=== PATIENT | female | born 1960 | race Caucasian/White ===

== ENCOUNTER 2023-02-03 06:45 | Day surgery (SDC) | payer BC ==
[2023-02-02 12:06] LABS: Absolute Lymphocytes (CBC) 3.3 K/uL (0.7-4.9); Hematocrit 44.4 % (36.0-45.0); Lymphocytes % 36.5 % (15.3-44.8); MCV 88.7 fL (80-100); MPV 7.4 fL (7.6-11.3); Platelets 256 thou/uL (152-406); RBC Red Blood Cell Count 5.01 M/uL (3.86-4.86)
[2023-02-02 12:10] LABS: Protime INR 0.97
--- NOTE | 2023-02-02 12:50 | RAD REPORT ---
EXAM DESCRIPTION: RAD - Chest Pa And Lat (2 Views) - 02/02/2023 11:10 am CLINICAL HISTORY: pre procedure Chest pain. COMPARISON: Chest Pa And Lat (2 Views) dated 04/17/2017; CHEST PA AND LAT 2 VIEW dated 02/27/2014; PATRICIO ST PA AND LAT 2 VIEW dated 09/25/2006 TECHNIQUE: PA and lateral views of the chest were obtained. FINDINGS: The lungs are hyperexpanded compatible with COPD. The heart is upper limit of normal in si ze. No fracture or aggressive bony process. Small hiatal hernia. IMPRESSION: COPD without acute process identified. The USPSTF recommends annual screening for lung cancer with low-dose CT (LDCT) in adults aged 50 to 8 0 years who have a 20 pack-year smoking history and currently smoke or have quit within the past 15 y ears.
[2023-02-03] MEDS ORDERED: HEPA 1000U/500MLS 2,000 UNIT/1,000 ML BAG IV ONE (07:10)
[2023-02-03] MEDS ORDERED: LIDOCAINE 1% 20 ML MDV ONE (07:10)
[2023-02-03] MEDS ORDERED: FENTANYL CITR 100 MCG/2 ML ONE (07:11)
[2023-02-03] MEDS ORDERED: VERAPAMIL HCL 10 MG/4 ML VIAL IV ONE (07:11)
[2023-02-03] MEDS ORDERED: HEPARIN 5000 UNIT/ML 1 ML VIAL ONE (07:11)
[2023-02-03] MEDS ORDERED: MIDAZOLAM HCL 2 MG/2 ML INJ ONE (07:11)
[2023-02-03] MEDS ORDERED: NITROGLYCERIN 100 MCG/ML SYR (for cath lab use only) IV ONE (07:12)
[2023-02-03] MEDS ORDERED: ATROPINE SULF 1 MG/10 ML SYR IV ONE (07:12)
[2023-02-03] MEDS ORDERED: HEPARIN 10,000 UNIT/10 ML VIAL IV ONE (07:12)
[2023-02-03] MEDS ORDERED: NITROGLYCERIN/D5W 50 MG/250 ML BTL IV ONE (07:12)
[2023-02-03] MEDS ORDERED: NA CHLORIDE 0.9% 500 ML ONE ×2 (07:21→07:56)
[2023-02-03] MEDS ORDERED: ASPIRIN 325 MG TAB ONE (07:24)
[2023-02-03] MEDS ORDERED: TICAGRELOR 90 MG TABLET PO ONE (07:24)
[2023-02-03] MEDS ORDERED: CLOPIDOGREL 75 MG TABLET ONE (07:24)
[2023-02-03 09:39] VITALS: TEMP 98
[2023-02-03] MEDS ORDERED: ACETAMINOPHEN 325 MG TABLET ONE (10:34)
[2023-02-03 12:06] VITALS: O2SAT 97
[2023-02-03 12:10] VITALS: BP 122/74
--- NOTE | 2023-02-03 12:28 | OP ---
Date of Procedure: 02/03/2023 Surgeon: LINDA MARADIAGA Procedures Performed: 1.Selective coronary angiogram. 2.Left heart catheterization. Indication: Chest pain with abnormal stress suggestive of unstable angina. Access: Right radial artery and 6-Beninese closed with TR band. Complications: None. Bleeding: Less than 20 mL. Anesthesia: Total sedation time was 30 minutes. Description Of Procedure: After risks, benefits, and alternatives were explained, the patient agreed to procedure and signed informed consent. The patient was brought into the cardiac catheterization laboratory, prepped and draped in usual sterile fashion. I accessed right radial artery using pediat consuelo micropuncture kit, placed a 6-Beninese slender sheath and took 5-Beninese Hawi 4.0 catheter into the aortic root over a J-wire, engaged left main, took standard views and on the RCA and took standard v iews and then the catheter was pushed over the wire into the LV, measured LVEDP and pullback did not record any gradient and removed the catheter and the sheath and placed TR band with good hemostasis. Findings: 1.Left main is large and normal. 2.LAD; large vessel with normal proximal segment. In the mid segment, focal 20%. Rest of the LAD i s normal. Normal diagonal branches. 3.Left circumflex is very large and dominant and normal. 4.RCA; small, nondominant and normal. 5.Normal LVEDP at 8 mmHg. Conclusions: 1.Mild nonobstructive coronary artery disease. 2.Normal LVEDP. Recommendation: Medical management. /EMERY Voice ID: [id number] Report ID: [id number]
--- NOTE | 2023-02-05 15:28 | EKG ---
Test Date: 2023-02-02 Test Time: 11:48:31 Tariff Inspector: MEASUREMENT RESULTS: Intervals: Rate: 76 WY: 176 QRSD: 86 QT: 386 QTc: 434 Otis: P: 33 WY: 176 QRS: -15 T: 60 INTERPRETIVE STATEMENTS: Normal sinus rhythm Normal ECG Compared to ECG 02/04/2000 10:18:00 No significant changes Electronically Signed On 02-05-23 15:16:02 CAREER DEVELOPMENT ENGINEER by Marco Ayala
== END 2023-02-03 11:30 | disposition home or self-care (01) ==
LOC: CCL 06:45
PROVIDERS: ATTEND Internal Medicine
DX: I25.110 Atherosclerotic heart disease of native coronary artery with unstable angina pectoris (principal); Z88.5 Allergy status to narcotic agent; Z88.8 Allergy status to other drugs, medicaments and biological substances
CPT/HCPCS: 93005; 85025; 80048; 36415; 83721; 85610; 82947; 85730; 71046; 93458; 76937; C1893; Q9966; J1644; J2001; J2250; J3010; J7040 ×2; 99152; 99153; J0461